=== PATIENT | female | born 1980 | race Two or more races ===

== ENCOUNTER 2017-04-08 12:45 | Emergency (ER) | payer SELFPAY ==
[2017-04-08] MEDS ORDERED: SODIUM CHLORIDE 0.9% 1,000 ML IV ONE (13:15)
--- NOTE | 2017-04-08 13:17 | ED Physician Documentation ---
PD HPI FEMALE - Stated complaint Stated Complaint: DIZZY/VOMITING/FEMALE - Chief complaint Chief Complaint: Abd Pain - History obtained from History obtained from: Patient, Family - History of Present Illness Timing - onset: How many days ago (2) Timing - duration: Days (2) Timing - details: Gradual onset, Still present Associated symptoms: Pelvic pain, Vaginal bleeding Contributing factors: No: OB-[employer] History: G (3), P (2), Prior C section (X2), Tubal ligation Similar symptoms before: Has not had sx before Recently seen: Not recently seen - Additional information Additional information: 36 y/o female with excessive vaginal bleeding starting 2 days ago has dizziness and lightheadedness. Review of Systems Constitutional: reports: Fever, Chills Eyes: denies: Decreased vision Ears: denies: Ear pain Nose: denies: Congestion Throat: denies: Sore throat Cardiac: denies: Chest pain / pressure Respiratory: denies: Dyspnea, Cough GI: reports: Abdominal Pain, Nausea, Vomiting, Diarrhea : denies: Dysuria, Frequency Skin: denies: Rash Musculoskeletal: denies: Neck pain, Back pain PD PAST MEDICAL HISTORY - Past Surgical History Past Surgical History: Yes /[employer]: section - Present Medications Home Medications: Ambulatory Orders Medication Instructions Recorded Confirmed Levothyroxine [Synthroid] 1 tab PO DAILY 04/08/17 04/08/17 Norgestrel-Ethinyl Estradiol 1 each PO DAILY #28 tablet 04/08/17 [Ogestrel] Ondansetron Odt [Zofran] 4 mg TL Q6H PRN #10 tablet 04/08/17 metFORMIN [Glucophage] 1 tab PO BID 04/08/17 04/08/17 - Allergies Allergies/Adverse Reactions: Allergies Allergy/AdvReac Type Severity Reaction Status Date / Time No Known Drug Allergies Allergy Verified 04/08/17 12:54 - Social History Does the pt smoke?: No Smoking Status: Never smoker Does the pt drink ETOH?: Yes Does the pt have substance abuse?: No PD ED PE NORMAL - Vitals Vital signs reviewed: Yes (hypertensive ) - General General: No acute distress, Well developed/nourished, Other (overweight female in no distress) - HEENT HEENT: Atraumatic, PERRL, EOMI - Neck Neck: Supple, no meningeal sign - Cardiac Cardiac: RRR, No murmur - Respiratory Respiratory: No respiratory distress, Clear bilaterally - Abdomen Abdomen: Soft, Other (mild right upper quadrant tenderness without garding/ rebound.) - Back Back: No CVA TTP, No spinal TTP - Derm Derm: Normal color, Warm and dry, No rash - Extremities Extremities: No deformity, No edema - Neuro Neuro: Alert and oriented X 3, No motor deficit, No sensory deficit, Normal speech - Psych Psych: Normal mood, Normal affect Results - Vitals Vitals: Vital Signs - 24 hr 04/08/17 04/08/17 12:51 15:28 Temperature 36.0 C L Heart Rate 93 72 Respiratory 18 20 Rate Blood Pressure 151/93 H 122/72 O2 Saturation 99 99 Oxygen O2 Source Room air - Labs Labs: Laboratory Tests 04/08/17 04/08/17 04/08/17 13:38 13:38 14:33 WBC 7.7 RBC 4.60 Hgb 11.8 L Hct 36.8 L MCV 80.1 L MCH 25.7 L MCHC 32.1 RDW 15.2 H Plt Count 253 MPV 8.8 Neut # 4.1 Lymph # 2.6 [place] # 0.8 Eos # 0.2 Baso # 0.0 Absolute Nucleated RBC 0.00 Nucleated RBCs 0.0 Sodium 138 Potassium 3.7 Chloride 106 Carbon Dioxide 25 Anion Gap 7.0 BUN 7 Creatinine 0.5 Estimated GFR (MDRD) 139 Glucose 168 H Calcium 8.6 Total Bilirubin 0.5 AST 43 H ALT 49 Alkaline Phosphatase 80 Total Protein 7.0 Albumin 3.8 Globulin 3.2 Albumin/Globulin Ratio 1.2 Lipase 20 L Urine Color ORANGE Urine Clarity CLOUDY Urine pH 5.5 Ur Specific [place] 1.025 Urine Protein NEGATIVE Urine Glucose (UA) NEGATIVE Urine Ketones NEGATIVE Urine Occult Blood LARGE H Urine Nitrite NEGATIVE Urine Bilirubin NEGATIVE Urine Urobilinogen 0.2 (NORMAL) Ur Leukocyte Esterase NEGATIVE Urine RBC TNTC H Urine WBC 0-3 Ur Squamous Epith Cells NONE SEEN Urine Bacteria Rare Ur Microscopic Review INDICATED Urine Culture Comments NOT INDICATED Urine HCG, Qual NEGATIVE Procedures - IVC sono (time) 1312 Bedside IVC sono: IVC measures (cm) (1.24), IVC collapsed c insp (cm) (complete) , Dehydration PD MEDICAL DECISION MAKING - ED course Complexity details: reviewed results, re-evaluated patient, considered differential, d/w patient, d/w family ED course: 36 y/o female with dysfunctional uterine bleeding has a fair blood loss and is feeling dizzy. She is given IV saline and zofran and Dr. Shelton is consulted in the case and we will give lo-ovral to arrest bleeding and have her follow up in the clinic next week. Departure - Departure Disposition: 01 Home, Self Care Clinical Impression: Dysfunctional uterine bleeding Condition: Stable Instructions: ED Bleed Irregular Vaginal Follow-Up: Cheikh Shelton MD [Provider Admit Priv/Credential] - Prescriptions: Norgestrel-Ethinyl Estradiol [Ogestrel] 1 each PO DAILY #28 tablet Ondansetron Odt [Zofran] 4 mg TL Q6H PRN #10 tablet PRN Reason: Nausea / Vomiting Print Language: Malaysian Comments: Take the control pill times per day until your bleeding stops then reduce to 2 pills per day and then to one per day. Follow up with Dr. Shelton this Wednesday April 12, 2017 at 3pm at [facility].
[2017-04-08 13:56] LABS: HCT - HEMATOCRIT 36.8 % (37.0-47.0); HGB - HEMOGLOBIN 11.8 g/dL (12.0-16.0); MEAN CORPUSCULAR HEMOGLOBIN 25.7 pg (27.0-31.0); MEAN CORPUSCULAR HGB CONC 32.1 g/dL (32.0-36.0); MEAN CORPUSCULAR VOLUME 80.1 fL (81.0-99.0); RED CELL DISTRIBUTION WIDTH 15.2 % (12.0-15.0); WHITE BLOOD COUNT 7.7 x10^3/uL (4.8-10.8)
[2017-04-08 13:57] LABS: BASOPHILS % (AUTO) 0.3 %; EOSINOPHILS # (AUTO) 0.2 10^3/uL (0.0-0.7); EOSINOPHILS % (AUTO) 2.1 %; LYMPHOCYTES # (AUTO) 2.6 10^3/uL (1.5-3.5); LYMPHOCYTES % (AUTO) 33.9 %; MEAN PLATELET VOLUME 8.8 fL (7.9-10.8); MONOCYTES # (AUTO) 0.8 10^3/uL (0.0-1.0); MONOCYTES % (AUTO) 10.3 %; NEUTROPHILS # (AUTO) 4.1 10^3/uL (1.5-6.6); NEUTROPHILS % (AUTO) 53.4 %
[2017-04-08 14:14] LABS: ALBUMIN/GLOBULIN RATIO 1.2 (1.0-2.2); BILIRUBIN,TOTAL 0.5 mg/dL (0.2-1.0); CALCIUM 8.6 mg/dL (8.5-10.3); CREATININE 0.5 mg/dL (0.4-1.0); POTASSIUM 3.7 mmol/L (3.5-5.0)
[2017-04-08] MEDS ORDERED: ONDANSETRON 4 MG/2 ML VIAL IVP STA (14:37)
[2017-04-08] MEDS ORDERED: ONDANSETRON 4 MG/2 ML VIAL ONE (14:38)
[2017-04-08 14:49] LABS: BILIRUBIN,URINE NEGATIVE (NEGATIVE); PH,URINE 5.5 PH (5.0-7.5); UA w/ MICROSCOPIC CHARGE YES
[2017-04-08 14:50] LABS: HCG UR QUAL NEGATIVE; WBC,URINE 0-3 /HPF (0-5)
[2017-04-08 14:51] LABS: UR CULTURE IF IND NOT INDICATED
[2017-04-08 15:29] VITALS: BP 122/72
== END 2017-04-08 15:50 | disposition home or self-care (01) ==
LOC: ED 12:45
DX: N93.8 Other specified abnormal uterine and vaginal bleeding (principal)
CPT/HCPCS: 36415; 80053; 81001; 81003; 81025; 83690; 85025; 87086; 96361; 96374; 99283; 99284

== ENCOUNTER 2017-11-13 23:19 | Emergency (ER) | payer SELFPAY ==
[2017-11-14] MEDS ORDERED: ONDANSETRON 4 MG/2 ML VIAL IVP STA (00:16)
[2017-11-14] MEDS ORDERED: SODIUM CHLORIDE 0.9% 1,000 ML IV ONE ×3 (00:16→02:59)
--- NOTE | 2017-11-14 00:16 | ED Physician Documentation ---
PD HPI ABD PAIN - Stated complaint Stated Complaint: V/F/D/ABD PX - Chief complaint Chief Complaint: Neuro - History obtained from History obtained from: Patient, Family (who helps with translation) - History of Present Illness Timing - onset: Today Timing - duration: Days (1) Timing - details: Abrupt onset (she has had some dysuria for 1-2 days but then had onset left lower abd pain radiating to left flank starting this morning. There is increased for the morning into the afternoon. It was associated with onset of nausea and vomiting starting around noon. She also started feeling feverish this afternoon with a temperature up to 101 at home. She is feeling generally weak and lightheaded and had persistent pain. She was brought in reluctantly this evening by family. She has not had prior similar episodes.) Quality: Aching, Sharp, Pain Location: LLQ Radiation: Left flank Improved by: Position (lying to side). No: Eating, Vomiting Worsened by: No: Eating, Moving, Breathing, Palpation Associated symptoms: Fever, Nausea, Vomiting, Dysuria, Dizzy (lightheaded this evening), Loss of appetite. No: Diarrhea, Constipation Similar symptoms before: Has not had sx before Recently seen: Not recently seen Review of Systems Constitutional: reports: Fever, Chills Nose: denies: Rhinorrhea / runny nose, Congestion Throat: denies: Sore throat Respiratory: denies: Cough GI: reports: Abdominal Pain, Nausea, Vomiting. denies: Constipation, Diarrhea, Bloody / black stool : reports: Dysuria, LMP (current). denies: Frequency, Discharge Skin: denies: Rash, Lesions Musculoskeletal: reports: Back pain (today) Neurologic: reports: Generalized weakness. denies: Focal weakness, Numbness, Near syncope, Altered mental status Endocrine: denies: Weight loss Immunocompromised: denies: Immunocompromised PD PAST MEDICAL HISTORY - Past Medical History Past Medical History: Yes Cardiovascular: None Endocrine/Autoimmune: HyPOthyroidism : None Other Past Medical History: Prediabetes - Past Surgical History Past Surgical History: Yes /[employer]ENT [employer]GY LEAD: section - Present Medications Home Medications: Ambulatory Orders Medication Instructions Recorded Confirmed Levothyroxine [Synthroid] 1 tab PO DAILY 04/08/17 11/14/17 Norgestrel-Ethinyl Estradiol 1 each PO DAILY #28 tablet 04/08/17 11/14/17 [Ogestrel] metFORMIN [Glucophage] 2 tab PO BID 04/08/17 11/14/17 - Allergies Allergies/Adverse Reactions: Allergies Allergy/AdvReac Type Severity Reaction Status Date / Time No Known Drug Allergies Allergy Verified 11/13/17 23:31 - Social History Does the pt smoke?: No Smoking Status: Never smoker Does the pt drink ETOH?: Yes Does the pt have substance abuse?: No - Immunizations Immunizations are current?: Yes PD ED PE NORMAL - Vitals Vital signs reviewed: Yes - General General: Other (appears in pain. BP low and heart rate elevated. Temperature. c/ w sepsis. ) - HEENT HEENT: Moist mucous membranes, Pharynx benign - Neck Neck: Supple, no meningeal sign, No adenopathy - Cardiac Cardiac: RRR (tachycardic), No murmur - Respiratory Respiratory: Clear bilaterally - Abdomen Abdomen: Normal bowel sounds, Non distended, No organomegaly, Other (tender LLQ and left abd. Left CVA tenderness. ) - Female Female : Deferred - Rectal Rectal: Deferred - Back Back: No spinal TTP, Other (left CVA tenderness. ) - Derm Derm: Normal color, Warm and dry, No rash - Extremities Extremities: No tenderness to palpate, Normal ROM s pain, No edema, No calf tenderness / cord - Neuro Neuro: Alert and oriented X 3, No motor deficit, Normal speech Eye Opening: Spontaneous Motor: Obeys Commands Verbal: Oriented GCS Score: 15 - Psych Psych: Normal mood Results - Vitals Vitals: Vital Signs - 24 hr 11/13/17 11/14/17 11/14/17 23:25 00:00 00:07 Temperature 37.8 C H Heart Rate 102 H 99 107 H Respiratory 33 H 26 H 24 Rate Blood Pressure 91/61 101/71 100/62 O2 Saturation 96 96 96 11/14/17 11/14/17 11/14/17 01:39 02:11 02:30 Temperature 37.5 C Heart Rate 107 H 108 H 109 H Respiratory 19 18 Rate Blood Pressure 105/56 L 112/65 O2 Saturation 97 94 95 11/14/17 02:40 Temperature Heart Rate 108 H Respiratory Rate Blood Pressure 111/69 O2 Saturation Oxygen O2 Source Room air - Labs Labs: Laboratory Tests 11/13/17 11/13/17 11/13/17 23:00 23:00 23:00 WBC 33.0 H RBC 5.10 Hgb 9.7 L Hct 33.0 L MCV 64.7 L MCH 19.0 L MCHC 29.4 L RDW 19.2 H Plt Count 356 MPV 9.0 Neut # Not Reportable Lymph # Not Reportable [place] # Not Reportable Eos # Not Reportable Baso # Not Reportable Absolute Nucleated RBC Not Reportable Total Counted 100 Band Neuts % (Manual) 21 H Abnorm Lymph % (Manual) 0 Metamyelocytes % 3 H Nucleated RBC % Not Reportable Neutrophils # (Manual) 29.4 H Lymphocytes # (Manual) 1.3 L Monocytes # (Manual) 1.3 H Eosinophils # (Manual) 0.0 Basophils # (Manual) 0.0 Differential Comment MANUAL DIFFERENTIAL Manual Slide Review Indicated Platelet Estimate NORMAL (130-450,000) Platelet Morphology RARE GIANT PLATELETS RBC Morph Micro Appear 1+ MICROCYTOSIS Sodium 132 L Potassium 4.1 Chloride 98 L Carbon Dioxide 22 Anion Gap 12.0 BUN 12 Creatinine 1.1 H Estimated GFR (MDRD) 56 L Glucose 262 H Lactic Acid Calcium 8.3 L Total Bilirubin 0.5 AST 44 H ALT 32 Alkaline Phosphatase 67 Total Protein 7.4 Albumin 3.6 Globulin 3.8 Albumin/Globulin Ratio 0.9 L Lipase 11 L Serum HCG, Qual NEGATIVE Urine Color Urine Clarity Urine pH Ur Specific [place] Urine Protein Urine Glucose (UA) Urine Ketones Urine Occult Blood Urine Nitrite Urine Bilirubin Urine Urobilinogen Ur Leukocyte Esterase Urine RBC Urine WBC Ur Squamous Epith Cells Urine Bacteria Ur Microscopic Review Urine Culture Comments Influenza A (Rapid) Influenza B (Rapid) Influenza Types A,B Ag 11/14/17 11/14/17 11/14/17 00:45 00:47 00:50 WBC RBC Hgb Hct MCV MCH MCHC RDW Plt Count MPV Neut # Lymph # [place] # Eos # Baso # Absolute Nucleated RBC Total Counted Band Neuts % (Manual) Abnorm Lymph % (Manual) Metamyelocytes % Nucleated RBC % Neutrophils # (Manual) Lymphocytes # (Manual) Monocytes # (Manual) Eosinophils # (Manual) Basophils # (Manual) Differential Comment Manual Slide Review Platelet Estimate Platelet Morphology RBC Morph Micro Appear Sodium Potassium Chloride Carbon Dioxide Anion Gap BUN Creatinine Estimated GFR (MDRD) Glucose Lactic Acid 3.5 H* Calcium Total Bilirubin AST ALT Alkaline Phosphatase Total Protein Albumin Globulin Albumin/Globulin Ratio Lipase Serum HCG, Qual Urine Color DARK YELLOW Urine Clarity CLOUDY Urine pH 6.0 Ur Specific [place] >=1.030 H Urine Protein 30 H Urine Glucose (UA) 100 H Urine Ketones TRACE Urine Occult Blood LARGE H Urine Nitrite POSITIVE H Urine Bilirubin NEGATIVE Urine Urobilinogen 0.2 (NORMAL) Ur Leukocyte Esterase MODERATE H Urine RBC 11-25 H Urine WBC >25 H Ur Squamous Epith Cells FEW Squamous Urine Bacteria Many H Ur Microscopic Review INDICATED Urine Culture Comments INDICATED Influenza A (Rapid) Negative Influenza B (Rapid) Negative Influenza Types A,B Ag - - Rads (name of study) abd CT Radiology: Prelim report reviewed, EMP read contemporaneously (left hydroureter and hydronephrosis. 6 mm stone distal ureter severely obstructing. No other cause for the pain. No free air nor free fluid. ) PD MEDICAL DECISION MAKING - ED course Complexity details: reviewed results, re-evaluated patient, considered differential (initially looking like sepsis and concern for pyelonephritis vs. divertic. CT done showing pyelonephrosis and 6 mm obstructing distal ureteral stone. I had initially contacted our hospitalist but with the CT finding of obstructing stone in setting of pyelo/sepsis, she needs urology as well. Family requested [facility] for transfer, and I talked with Hospitalist there, who accepts transfer. ), d/w patient Departure - Departure Disposition: 02 Transfer Acute Care Hosp Clinical Impression: Pyelonephritis, Ureterolithiasis Sepsis Qualifiers: Sepsis type: sepsis due to unspecified organism Qualified Code(s): A41.9 - Sepsis, unspecified organism Abdominal pain Qualifiers: Abdominal location: left lower quadrant Qualified Code(s): R10.32 - Left lower quadrant pain Condition: Stable Record reviewed to determine appropriate education?: Yes
[2017-11-14] MEDS ORDERED: ACETAMINOPHEN 1,000 MG/100 ML 100 ML IV STA (00:17)
[2017-11-14] MEDS ORDERED: MORPHINE 2 MG/ML CARPUJECT IVP STA (00:18)
[2017-11-14] MEDS ORDERED: MORPHINE 10 MG/ML VIAL ONE (00:34)
[2017-11-14 00:38] LABS: ALBUMIN 3.6 g/dL (3.2-5.5); ALBUMIN/GLOBULIN RATIO 0.9 (1.0-2.2); BASOPHILS % (AUTO) 0.2 %; BILIRUBIN,TOTAL 0.5 mg/dL (0.2-1.0); CALCIUM 8.3 mg/dL (8.5-10.3); CREATININE 1.1 mg/dL (0.4-1.0); HGB - HEMOGLOBIN 9.7 g/dL (12.0-16.0); LYMPHOCYTES % (AUTO) 2.2 %; MEAN CORPUSCULAR HGB CONC 29.4 g/dL (32.0-36.0); MEAN CORPUSCULAR VOLUME 64.7 fL (81.0-99.0); MONOCYTES % (AUTO) 4.6 %; PLT - PLATELET COUNT 356 10^3/uL (130-450); RED CELL DISTRIBUTION WIDTH 19.2 % (12.0-15.0); TOTAL PROTEIN 7.4 g/dL (6.7-8.2)
[2017-11-14 00:42] LABS: ABNORMAL LYMPHS % (MANUAL) 0 %
[2017-11-14 00:52] LABS: BILIRUBIN,URINE NEGATIVE (NEGATIVE); GLUCOSE, URINE (UA) 100 mg/dL (NEGATIVE); KETONES,URINE (UA) TRACE mg/dL (NEGATIVE); LEUKOCYTE ESTERASE, URINE MODERATE (NEGATIVE); NITRITE,URINE POSITIVE (NEGATIVE); OCCULT BLOOD,URINE LARGE (NEGATIVE); PROTEIN,URINE 30 mg/dL (NEGATIVE); UROBILINOGEN,URINE 0.2 (NORMAL) E.U./dL (NORMAL)
[2017-11-14 00:53] LABS: HCG,QUALITATIVE BLOOD NEGATIVE
[2017-11-14 00:55] LABS: CLARITY,URINE CLOUDY (CLEAR)
[2017-11-14] MEDS ORDERED: cefTRIAXone 2 GM in SODIUM CHLORIDE 0.9% MINIBAG 100 ML IV STA (00:59)
[2017-11-14] MEDS ORDERED: IOPAMIDOL-300 100 ML VIAL ONE (01:03)
[2017-11-14 01:09] LABS: BACTERIA,URINE Many /HPF (None Seen); SQUAMOUS EPITHELIAL CELL,UR FEW Squamous (<= Few)
[2017-11-14 01:20] LABS: BAND NEUTROPHILS % (MANUAL) 21 %; LYMPHOCYTES # (MANUAL) 1.3 10^3/uL (1.5-3.5); LYMPHOCYTES % (MANUAL) 4 %; METAMYELOCYTES % (MANUAL) 3 %; MONOCYTES # (MANUAL) 1.3 10^3/uL (0.0-1.0); NEUTROPHILS # (MANUAL) 29.4 10^3/uL (1.5-6.6); NEUTROPHILS % (MANUAL) 68 %
[2017-11-14] MEDS ORDERED: IOPAMIDOL-300 100 ML VIAL IVP ONE (01:20)
[2017-11-14 01:23] LABS: DIFFERENTIAL COMMENT MANUAL DIFFERENTIAL; PLATELET ESTIMATE, MANUAL NORMAL (130-450,000) (NORMAL)
[2017-11-14] MEDS ORDERED: KETOROLAC 60 MG/2 ML VIAL IVP STA (01:38)
--- NOTE | 2017-11-14 02:02 | CT Report ---
EXAM: CT ABDOMEN AND PELVIS EXAM DATE: 11/14/2017 01:34 AM. CLINICAL HISTORY: Left lower quadrant pain and fever, vomiting. COMPARISONS: None. TECHNIQUE: Routine helical CT imaging was performed through the abdomen and pelvis. IV contrast: 100M L ISOVUE 300. Enteric contrast: No. Reconstructions: Coronal and sagittal. In accordance with CT protocol optimization, one or more of the following dose reduction techniques w ere utilized for this exam: automated exposure control, adjustment of mA and/or KV based on patient s ize, or use of iterative reconstructive technique. FINDINGS: Lung Bases: Unremarkable. Liver: Fatty infiltration. Gallbladder/Bile Ducts: Status post cholecystectomy. Spleen: Normal. Pancreas: Normal. Adrenal Glands: Normal. Kidneys: Motion artifact. Right kidney grossly unremarkable. Decreased enhancement of the left kidney with hydronephrosis and hydroureter. Perinephric and periureteral stranding. Severely obstructing 6 x 4 mm stone at the left ureterovesical junction. Peritoneal Cavity/Bowel: No bowel obstruction seen. No diverticulitis. No free air or free fluid. No lymphadenopathy. Appendix appears normal. Pelvic Organs: Decompressed urinary bladder. Wall appears mildly thickened. Visualized pelvic organs are otherwise unremarkable. Vasculature: No aneurysms or other significant abnormality. Bones: No significant abnormality. Other: None. IMPRESSION: 1. Severely obstructing 6 x 4 mm stone at the left ureterovesical junction. 2. Decompressed urinary bladder with wall thickening which may simply represent nondistention. Cystit is also possible. 3. Fatty liver. [facility] Referring Provider Line: [phone] SITE ID: [id number]
[2017-11-14] MEDS ORDERED: HYDROmorphone 1 MG/ML SYRINGE IVP STA (02:53)
[2017-11-14 05:04] VITALS: BP 139/93
== END 2017-11-14 05:20 | disposition short-term general hospital (02) ==
LOC: ED 23:19
DX: N12 Tubulo-interstitial nephritis, not specified as acute or chronic (principal); N20.1 Calculus of ureter; A41.9 Sepsis, unspecified organism; E03.9 Hypothyroidism, unspecified
CPT/HCPCS: 36415; 74177; 80053; 81001; 83605; 83690; 84703; 85025; 87086; 87181; 87275; 87276; 93005; 96361; 96365; 96375; 99285; J0131; J1170; Q9967; 81003